=== PATIENT | female | born 1955 | race African-American/Black ===

== ENCOUNTER 2018-04-20 09:47 | Emergency (ER) | payer OTHER ==
[~2018-04-20] VITALS: Ht 167.6 cm; Wt 77.0 kg
[2018-04-20] MEDS ORDERED: DIPHENHYDRAMINE 50MG/ML VIAL IV ONE (10:15)
[2018-04-20] MEDS ORDERED: METOCLOPRAMIDE HCL 10MG/2ML VIAL IV ONE (10:15)
[2018-04-20] MEDS ORDERED: ASPIRIN 81MG TABLET PO NR (11:15)
[2018-04-20 11:46] LABS: BASOPHILS % 0.7 % (0.0-2.0); HEMATOCRIT. 37.8 % (36.0-48.0); HEMOGLOBIN. 12.3 g/dL (12.0-16.0); LYMPHOCYTES % 33.1 % (20.0-50.0); MEAN CORPUSCULAR HEMOGLOBIN 29.1 pg (28.0-32.0); MEAN CORPUSCULAR VOLUME 89.8 fL (81.0-99.0); MEAN PLATELET VOLUME 7.3 fl (7.4-10.4); MONOCYTES % 8.1 % (2.0-8.0); NEUTROPHILS % 55.1 % (40.0-76.0); PLATELET 366 x1000/uL (130-400); RED BLOOD CELL COUNT 4.21 mill/uL (4.2-5.4)
[2018-04-20 11:50] LABS: CHLORIDE 109 mEq/L (98-107)
[2018-04-20 11:51] LABS: INR 1.1; PROTHROMBIN TIME 10.7 sec (9.1-11.1)
[2018-04-20] MEDS ORDERED: ONDANSETRON HCL 4MG/2ML INJ IV ONE (12:30)
[2018-04-20 13:30] VITALS: BP 118/68
== END 2018-04-20 13:50 | disposition short-term general hospital (02) ==
LOC: ER 09:55 → CANBEDREQ 20:24
DX: R07.89 Other chest pain (principal); I11.9 Hypertensive heart disease without heart failure; I25.10 Atherosclerotic heart disease of native coronary artery without angina pectoris; Z79.01 Long term (current) use of anticoagulants; Z98.61 Coronary angioplasty status; Z88.6 Allergy status to analgesic agent
CPT/HCPCS: 36415; 71045; 80053; 83880; 84484; 85025; 85610; 93005; 96374; 96375; 99285; J1200; J2405; J2765

== ENCOUNTER 2018-07-29 23:41 | Emergency (ER) | payer OTHER ==
[~2018-07-29] VITALS: Ht 165.1 cm; Wt 69.0 kg
[2018-07-30] MEDS ORDERED: KETOROLAC 60MG/2ML VIAL IM ONE (00:15)
[2018-07-30 01:17] LABS: HEMATOCRIT 39.7 % (36.0-48.0); HEMOGLOBIN 12.8 g/dL (12.0-16.0); MEAN CORPUSCULAR HEMOGLOBIN 28.8 pg (28.0-32.0); MEAN CORPUSCULAR VOLUME 89.1 fL (81.0-99.0); PLATELET 327 x1000/uL (130-400); RED BLOOD CELL COUNT 4.45 mill/uL (4.2-5.4); RED CELL DISTRIBUTION WIDTH 15.5 % (11.6-14.6)
[2018-07-30 01:24] LABS: CHLORIDE 109 mEq/L (98-107)
[2018-07-30] MEDS ORDERED: IOHEXOL-350 100 ML BOTTLE ONE (03:24)
[2018-07-30 03:25] VITALS: BP 161/94
== END 2018-07-30 03:25 | disposition home or self-care (01) ==
LOC: ER 23:41
DX: R07.89 Other chest pain (principal); I10 Essential (primary) hypertension; I25.2 Old myocardial infarction; Y08.89XA Assault by other specified means, initial encounter; Y93.89 Activity, other specified; Y92.89 Other specified places as the place of occurrence of the external cause; Y99.8 Other external cause status; Z98.890 Other specified postprocedural states; Z88.8 Allergy status to other drugs, medicaments and biological substances; Z88.1 Allergy status to other antibiotic agents; Z88.6 Allergy status to analgesic agent; Z88.5 Allergy status to narcotic agent
CPT/HCPCS: 36415; 71045; 71275; 74174; 80053; 85027; 86850; 86900; 86901; 93005; 96372; 99284; J1885; Q9967

== ENCOUNTER 2018-12-25 09:55 | Emergency (ER) | payer OTHER ==
[~2018-12-25] VITALS: Ht 167.6 cm; Wt 72.0 kg
[2018-12-25] MEDS ORDERED: ONDANSETRON HCL 4MG/2ML INJ IV STA (10:21)
[2018-12-25] MEDS ORDERED: MORPHINE SULFATE 4 MG/ML CPJ (NOT FOR IM USE) IV STA (10:21)
[2018-12-25] MEDS ORDERED: NITROGLYCERIN OINT 1GM/INCH UDPKT TD ONE (10:30)
[2018-12-25 11:26] LABS: BASOPHILS % 0.4 % (0.0-2.0); EOSINOPHILS % 0.3 % (0.0-5.0); HEMATOCRIT. 41.3 % (36.0-48.0); HEMOGLOBIN. 13.6 g/dL (12.0-16.0); LYMPHOCYTES % 30.9 % (20.0-50.0); MEAN CORPUSCULAR VOLUME 90.8 fL (81.0-99.0); MEAN PLATELET VOLUME 7.8 fl (7.4-10.4); MONOCYTES % 5.6 % (2.0-8.0); NEUTROPHILS % 62.8 % (40.0-76.0); PLATELET 297 x1000/uL (130-400); RED BLOOD CELL COUNT 4.54 mill/uL (4.2-5.4); RED CELL DISTRIBUTION WIDTH 14.5 % (11.6-14.6)
[2018-12-25 11:35] LABS: CHLORIDE 110 mEq/L (98-107)
[2018-12-25] MEDS ORDERED: MORPHINE SULFATE 4 MG/ML CPJ (NOT FOR IM USE) IV ONE (13:30)
[2018-12-25] MEDS ORDERED: ONDANSETRON HCL 4MG/2ML INJ IV ONE (13:30)
[2018-12-25 14:33] VITALS: BP 137/74
== END 2018-12-25 14:57 | disposition short-term general hospital (02) ==
LOC: ER 09:55 → CANBEDREQ 15:41
DX: R07.89 Other chest pain (principal); I47.1 Supraventricular tachycardia; I11.9 Hypertensive heart disease without heart failure; I25.2 Old myocardial infarction; Z98.61 Coronary angioplasty status; Z88.8 Allergy status to other drugs, medicaments and biological substances; Z88.6 Allergy status to analgesic agent
CPT/HCPCS: 36415; 71045; 80053; 83880; 84484; 85025; 93005; 96361; 96374; 96375; 99285; J2270; J2405

== ENCOUNTER 2019-01-05 02:01 | Emergency (ER) | payer OTHER ==
[~2019-01-05] VITALS: Ht 160 cm; Wt 70.5 kg
[2019-01-05 06:51] LABS: BASOPHILS % 0.3 % (0.0-2.0); EOSINOPHILS % 0.9 % (0.0-5.0); HEMATOCRIT. 37.8 % (36.0-48.0); HEMOGLOBIN. 12.3 g/dL (12.0-16.0); LYMPHOCYTES % 40.7 % (20.0-50.0); MEAN CORPUSCULAR HEMOGLOBIN 29.9 pg (28.0-32.0); MEAN CORPUSCULAR VOLUME 91.9 fL (81.0-99.0); MEAN PLATELET VOLUME 7.7 fl (7.4-10.4); MONOCYTES % 7.1 % (2.0-8.0); PLATELET 253 x1000/uL (130-400); RED BLOOD CELL COUNT 4.12 mill/uL (4.2-5.4); RED CELL DISTRIBUTION WIDTH 13.8 % (11.6-14.6)
[2019-01-05 06:59] LABS: CHLORIDE 110 mEq/L (98-107)
[2019-01-05] MEDS ORDERED: OXYCODONE HCL/ACETAMINOPHEN 5/325MG TABLET PO ONE (07:00)
[2019-01-05 07:04] LABS: ETHANOL BLOOD < 10 mg/dL
[2019-01-05 08:49] VITALS: BP 105/62
== END 2019-01-05 11:53 | disposition short-term general hospital (02) ==
LOC: ER 02:01
DX: R07.89 Other chest pain (principal); R00.2 Palpitations; I10 Essential (primary) hypertension; I47.1 Supraventricular tachycardia; F17.200 Nicotine dependence, unspecified, uncomplicated; I25.2 Old myocardial infarction; Z98.890 Other specified postprocedural states; Z88.8 Allergy status to other drugs, medicaments and biological substances; Z88.5 Allergy status to narcotic agent; Z88.1 Allergy status to other antibiotic agents
CPT/HCPCS: 36415; 71045; 80320; 83880; 84484; 93005; 99285; G0480

== ENCOUNTER 2019-01-23 09:07 | Inpatient (IN) | payer OTHER ==
[~2019-01-23] VITALS: Ht 160 cm; Wt 70.3 kg
[2019-01-23] MEDS ORDERED: MORPHINE SULFATE 4 MG/ML CPJ (NOT FOR IM USE) IV STA (09:26)
[2019-01-23 09:54] LABS: BASOPHILS % 0.5 % (0.0-2.0); EOSINOPHILS % 0.3 % (0.0-5.0); HEMATOCRIT. 44.4 % (36.0-48.0); HEMOGLOBIN. 14.9 g/dL (12.0-16.0); LYMPHOCYTES % 21.6 % (20.0-50.0); MEAN CORPUSCULAR HEMOGLOBIN 30.5 pg (28.0-32.0); MEAN CORPUSCULAR VOLUME 90.9 fL (81.0-99.0); MEAN PLATELET VOLUME 7.6 fl (7.4-10.4); MONOCYTES % 6.5 % (2.0-8.0); NEUTROPHILS % 71.1 % (40.0-76.0); PLATELET 325 x1000/uL (130-400); RED BLOOD CELL COUNT 4.89 mill/uL (4.2-5.4); RED CELL DISTRIBUTION WIDTH 13.5 % (11.6-14.6)
[2019-01-23 10:01] LABS: CHLORIDE 111 mEq/L (98-107)
[2019-01-23] MEDS ORDERED: MORPHINE SULFATE 4 MG/ML CPJ (NOT FOR IM USE) IV ONE (11:00)
[2019-01-23 12:30] VITALS: BP 135/96
[2019-01-23 15:38] VITALS: BP 135/96
[2019-01-23] MEDS ORDERED: DOCUSATE SODIUM 100MG CAPSULE PO PRN (15:45)
[2019-01-23] MEDS ORDERED: HYDROCODONE/ACETAMINOPHEN 5/325MG TABLET PO PRN (15:45)
[2019-01-23] MEDS ORDERED: CLONIDINE 0.1MG TABLET PO PRN (15:45)
[2019-01-23] MEDS ORDERED: MAGNESIUM/ALUMINUM HYDROXIDE/SIMETHICONE 30ML UDC PO PRN (15:45)
[2019-01-23] MEDS ORDERED: ACETAMINOPHEN 325MG TABLET PO PRN (15:45)
[2019-01-23] MEDS ORDERED: IPRATROPIUM/ALBUTEROL 0.5-3(2.5)MG/3ML NEB NEB PRN (15:45)
[2019-01-23 16:00] VITALS: BP 108/66
[2019-01-23] MEDS: ASPIRIN 81MG EC TABLET PO SCH (17:07)
[2019-01-23] MEDS: METOPROLOL TARTRATE 25MG TABLET PO SCH ×2 (17:08→21:36)
[2019-01-23] MEDS: CLOPIDOGREL 75MG TABLET PO SCH (17:08)
[2019-01-23] MEDS ORDERED: ALPR0.5T MT (17:20)
[2019-01-23] MEDS ORDERED: CLOP75TA4 PO (17:20)
[2019-01-23] MEDS ORDERED: HYDR-3280 MT (17:20)
[2019-01-23] MEDS ORDERED: TIZA2CAP MT (17:20)
[2019-01-23] MEDS ORDERED: ASPI-1393 PO (17:20)
[2019-01-23] MEDS ORDERED: LAMC5 MT (17:20)
[2019-01-23] MEDS ORDERED: ONDA8TAB6 PO (17:20)
[2019-01-23] MEDS ORDERED: METO100T9 MT (17:20)
[2019-01-23] MEDS ORDERED: FAMO40TA70 PO (17:20)
[2019-01-23] MEDS ORDERED: ATOR10TA MT (17:20)
[2019-01-23] MEDS ORDERED: HYDR12.54 PO (17:20)
[2019-01-23] MEDS ORDERED: MORPHINE SULFATE 2 MG/ML CPJ (NOT FOR IM USE) IV PRN (17:30)
[2019-01-23] MEDS: MORPHINE SULFATE 2 MG/ML CPJ (NOT FOR IM USE) IV PRN (17:44)
[2019-01-23] MEDS: ENOXAPARIN 40MG/0.4ML SYR SUBCUT SCH (18:57)
[2019-01-23 20:00] VITALS: BP 98/68
[2019-01-23] MEDS: HYDROCODONE/ACETAMINOPHEN 10/325MG TABLET PO PRN (21:36)
[2019-01-23] MEDS: TIZANIDINE HCL 2MG TABLET PO SCH (21:37)
[2019-01-24] VITALS (7 sets, daily range): BP systolic 104–180; BP diastolic 63–86
[2019-01-24] MEDS: MORPHINE SULFATE 2 MG/ML CPJ (NOT FOR IM USE) IV PRN ×3 (01:40→15:19)
[2019-01-24] MEDS: ONDANSETRON HCL 4MG/2ML INJ IV PRN ×2 (04:49→09:15)
[2019-01-24] MEDS: HYDROCODONE/ACETAMINOPHEN 10/325MG TABLET PO PRN ×3 (04:56→20:40)
[2019-01-24 06:59] LABS: BASOPHILS % 0.4 % (0.0-2.0); EOSINOPHILS % 1.2 % (0.0-5.0); HEMATOCRIT. 41.4 % (36.0-48.0); HEMOGLOBIN. 13.4 g/dL (12.0-16.0); LYMPHOCYTES % 37.4 % (20.0-50.0); MEAN CORPUSCULAR HEMOGLOBIN 29.6 pg (28.0-32.0); MEAN CORPUSCULAR VOLUME 91.3 fL (81.0-99.0); MEAN PLATELET VOLUME 7.8 fl (7.4-10.4); MONOCYTES % 8.2 % (2.0-8.0); NEUTROPHILS % 52.8 % (40.0-76.0); PLATELET 318 x1000/uL (130-400); RED BLOOD CELL COUNT 4.54 mill/uL (4.2-5.4); RED CELL DISTRIBUTION WIDTH 13.6 % (11.6-14.6)
[2019-01-24 07:13] LABS: CHLORIDE 109 mEq/L (98-107)
[2019-01-24 07:23] LABS: PHOSPHORUS 3.4 mg/dL (2.5-4.9)
[2019-01-24 07:24] LABS: LDL CHOLESTEROL 117 mg/dL (5-100)
[2019-01-24 07:27] LABS: HDL CHOLESTEROL 42 mg/dL (40-59)
[2019-01-24] MEDS ORDERED: LAMOTRIGINE 25MG TABLET PO SCH (09:00)
[2019-01-24] MEDS: ASPIRIN 81MG EC TABLET PO SCH (11:16)
[2019-01-24] MEDS: METOPROLOL TARTRATE 25MG TABLET PO SCH ×2 (11:16→20:39)
[2019-01-24] MEDS: CLOPIDOGREL 75MG TABLET PO SCH (11:16)
[2019-01-24] MEDS: ENOXAPARIN 40MG/0.4ML SYR SUBCUT SCH (17:20)
[2019-01-24] MEDS: TIZANIDINE HCL 2MG TABLET PO SCH (20:39)
== END 2019-01-24 22:00 | disposition short-term general hospital (02) | DRG 310 ==
LOC: ER 09:07 → 6WST 11:18 → ENRESERV 12:56 → 6WST 18:11
PROVIDERS: ADMIT Family Medicine Adult Medicine; ATTEND Family Medicine Adult Medicine
DX: I47.1 Supraventricular tachycardia (principal); F41.9 Anxiety disorder, unspecified; G89.29 Other chronic pain; I10 Essential (primary) hypertension; I25.10 Atherosclerotic heart disease of native coronary artery without angina pectoris; M54.9 Dorsalgia, unspecified; I48.91 Unspecified atrial fibrillation; K21.9 Gastro-esophageal reflux disease without esophagitis; Z82.49 Family history of ischemic heart disease and other diseases of the circulatory system; Z90.711 Acquired absence of uterus with remaining cervical stump; Z95.5 Presence of coronary angioplasty implant and graft; Z88.8 Allergy status to other drugs, medicaments and biological substances
CPT/HCPCS: 36415; 71045; 80048; 80061; 83735; 83880; 84100; 84443; 84484; 93005; 93306; 93970; 96374; 96376; 99285; J1650; J2270; J2405

== ENCOUNTER 2019-01-25 23:50 | Emergency (ER) | payer OTHER ==
[~2019-01-25] VITALS: Ht 170.2 cm; Wt 72.0 kg
[~2019-01-25 23:50] MED LIST: ALPR0.5T MT; ASPI-1393 PO; ATOR10TA MT; CLOP75TA4 PO; FAMO40TA70 PO; HYDR-3280 MT; HYDR12.54 PO; LAMC5 MT; METO100T9 MT; ONDA8TAB6 PO; TIZA2CAP MT
[2019-01-26 00:36] LABS: BASOPHILS % 0.4 % (0.0-2.0); EOSINOPHILS % 0.7 % (0.0-5.0); HEMATOCRIT. 40.3 % (36.0-48.0); HEMOGLOBIN. 13.4 g/dL (12.0-16.0); LYMPHOCYTES % 36.5 % (20.0-50.0); MEAN CORPUSCULAR VOLUME 90.4 fL (81.0-99.0); MEAN PLATELET VOLUME 7.8 fl (7.4-10.4); MONOCYTES % 8.1 % (2.0-8.0); NEUTROPHILS % 54.3 % (40.0-76.0); PLATELET 286 x1000/uL (130-400); RED BLOOD CELL COUNT 4.46 mill/uL (4.2-5.4); RED CELL DISTRIBUTION WIDTH 13.5 % (11.6-14.6)
[2019-01-26 00:40] LABS: CHLORIDE 106 mEq/L (98-107)
[2019-01-26 00:48] LABS: ETHANOL BLOOD < 10 mg/dL
[2019-01-26 00:52] LABS: T4 FREE 1.51 ng/dL (0.76-1.46)
[2019-01-26] MEDS ORDERED: POTASSIUM CHLORIDE 20MEQ TABLET SR PO SCH (01:45)
[2019-01-26 03:02] VITALS: BP 125/84
== END 2019-01-26 03:33 | disposition short-term general hospital (02) ==
LOC: ER 23:50
DX: I47.1 Supraventricular tachycardia (principal); I48.91 Unspecified atrial fibrillation; I25.2 Old myocardial infarction; Z88.8 Allergy status to other drugs, medicaments and biological substances; Z79.899 Other long term (current) drug therapy; Z79.82 Long term (current) use of aspirin
CPT/HCPCS: 36415; 71045; 80320; 83880; 84439; 84443; 84484; 93005; 99285; G0480

== ENCOUNTER 2019-03-19 16:20 | Emergency (ER) | payer OTHER ==
[~2019-03-19] VITALS: Ht 165.1 cm; Wt 75.0 kg
[2019-03-19] MEDS ORDERED: ONDANSETRON HCL 4MG/2ML INJ IV STA (18:44)
[2019-03-19] MEDS ORDERED: MORPHINE SULFATE 4 MG/ML CPJ (NOT FOR IM USE) IV STA (18:44)
[2019-03-19 19:25] LABS: BASOPHILS % 0.3 % (0.0-2.0); EOSINOPHILS % 1.3 % (0.0-5.0); HEMATOCRIT. 37.8 % (36.0-48.0); HEMOGLOBIN. 12.5 g/dL (12.0-16.0); LYMPHOCYTES % 36.3 % (20.0-50.0); MEAN CORPUSCULAR HEMOGLOBIN 29.6 pg (28.0-32.0); MEAN CORPUSCULAR VOLUME 89.6 fL (81.0-99.0); MEAN PLATELET VOLUME 8.2 fl (7.4-10.4); MONOCYTES % 8.1 % (2.0-8.0); PLATELET 246 x1000/uL (130-400); RED BLOOD CELL COUNT 4.21 mill/uL (4.2-5.4); RED CELL DISTRIBUTION WIDTH 14.5 % (11.6-14.6)
[2019-03-19 19:29] LABS: CHLORIDE 110 mEq/L (98-107)
[2019-03-19 19:31] LABS: PARTIAL THROMBOPLASTIN TIME 27.3 sec (23.4-31.0); PROTHROMBIN TIME 10.2 sec (9.6-11.0)
[2019-03-19 21:24] VITALS: BP 145/76
== END 2019-03-19 21:30 | disposition short-term general hospital (02) ==
LOC: ER 16:20 → CANBEDREQ 22:41
DX: R07.89 Other chest pain (principal); R00.2 Palpitations; I48.91 Unspecified atrial fibrillation; I10 Essential (primary) hypertension; I25.2 Old myocardial infarction; Z98.61 Coronary angioplasty status; Z79.01 Long term (current) use of anticoagulants; Z98.890 Other specified postprocedural states; Z79.82 Long term (current) use of aspirin; Z88.6 Allergy status to analgesic agent; Z88.8 Allergy status to other drugs, medicaments and biological substances
CPT/HCPCS: 36415; 71045; 80053; 83690; 83880; 84443; 84484; 85025; 85610; 85730; 93005; 96374; 96375; 99285; J2270; J2405

== ENCOUNTER 2019-10-25 11:30 | Emergency (ER) | payer OTHER ==
[~2019-10-25] VITALS: Ht 160 cm; Wt 62.0 kg
[~2019-10-25 11:30] MED LIST changes: -ASPI-1393 PO; +ASPI-1497 PO
[2019-10-25] MEDS ORDERED: ONDANSETRON HCL 4MG/2ML INJ IV STA (11:50)
[2019-10-25] MEDS ORDERED: MORPHINE SULFATE 4 MG/ML CPJ (NOT FOR IM USE) IV STA (11:50)
[2019-10-25] MEDS ORDERED: DILTIAZEM HCL 5MG/ML 5ML VIAL IV ONE (12:00)
[2019-10-25 12:08] LABS: BASOPHILS % 0.5 % (0.0-2.0); EOSINOPHILS % 0.3 % (0.0-5.0); HEMATOCRIT. 41.5 % (36.0-48.0); HEMOGLOBIN. 13.8 g/dL (12.0-16.0); LYMPHOCYTES % 27.6 % (20.0-50.0); MEAN CORPUSCULAR HEMOGLOBIN 30.1 pg (28.0-32.0); MEAN CORPUSCULAR VOLUME 90.4 fL (81.0-99.0); MEAN PLATELET VOLUME 7.6 fl (7.4-10.4); MONOCYTES % 7.7 % (2.0-8.0); NEUTROPHILS % 63.9 % (40.0-76.0); PLATELET 240 x1000/uL (130-400); RED BLOOD CELL COUNT 4.59 mill/uL (4.2-5.4); RED CELL DISTRIBUTION WIDTH 14.9 % (11.6-14.6)
[2019-10-25 12:12] LABS: CHLORIDE 110 mEq/L (98-107)
[2019-10-25] MEDS ORDERED: ACETAMINOPHEN WITH CODEINE 300/30MG TABLET PO ONE (14:00)
[2019-10-25] MEDS ORDERED: DILTIAZEM HCL 120MG CAPSULE CD 24HR PO ONE (14:00)
[2019-10-25 14:32] VITALS: BP 115/79
== END 2019-10-25 15:22 | disposition short-term general hospital (02) ==
LOC: ER 11:30 → CANBEDREQ 16:20
DX: R07.89 Other chest pain (principal); R00.0 Tachycardia, unspecified; I25.2 Old myocardial infarction; I10 Essential (primary) hypertension; I48.91 Unspecified atrial fibrillation; Z79.01 Long term (current) use of anticoagulants; Z98.62 Peripheral vascular angioplasty status; Z88.6 Allergy status to analgesic agent; Z88.8 Allergy status to other drugs, medicaments and biological substances
CPT/HCPCS: 36415; 71045; 80053; 83880; 84484; 85025; 93005; 96374; 96375; 99285; J2270; J2405; J3490

== ENCOUNTER 2021-05-21 11:47 | Inpatient (IN) | payer OTHER, MEDICAID ==
[~2021-05-21] VITALS: Ht 160 cm; Wt 68.9 kg
[~2021-05-21 11:47] MED LIST changes: +CLOP-31 PO; -CLOP75TA4 PO; -HYDR-3280 MT; +HYDR-4350 MT
[2021-05-21 12:31] LABS: BASOPHILS % 0.7 % (0.0-2.0); EOSINOPHILS % 1.4 % (0.0-5.0); HEMATOCRIT. 42.5 % (36.0-48.0); HEMOGLOBIN. 14.2 g/dL (12.0-16.0); LYMPHOCYTES % 27.8 % (20.0-50.0); MEAN CORPUSCULAR HEMOGLOBIN 29.1 pg (28.0-32.0); MEAN CORPUSCULAR VOLUME 86.8 fL (81.0-99.0); MONOCYTES % 6.3 % (2.0-8.0); NEUTROPHILS % 63.8 % (40.0-76.0); RED CELL DISTRIBUTION WIDTH 14.6 % (11.6-14.6)
[2021-05-21 12:37] LABS: CHLORIDE 109 mEq/L (98-107)
[2021-05-21] MEDS ORDERED: METOPROLOL TARTRATE 100MG TABLET PO SCH (13:00)
[2021-05-21] MEDS ORDERED: POTASSIUM CHLORIDE 20MEQ TABLET SR PO NR (13:00)
[2021-05-21 13:01] LABS: PLATELET 224 x1000/uL (130-400)
[2021-05-21 13:09] LABS: CLARITY URINE CLEAR (CLEAR); COLOR URINE YELLOW (YELLOW); KETONES URINE NEGATIVE (NEGATIVE); LEUKOCYTE ESTERASE URINE NEGATIVE (NEGATIVE); NITRITE URINE NEGATIVE (NEGATIVE); OCCULT BLOOD URINE NEGATIVE (NEGATIVE); PROTEIN URINE NEGATIVE (NEGATIVE); SPECIFIC GRAVITY URINE 1.012 (1.005-1.030); UROBILINOGEN URINE 0.2 E.U./dL (0.2-1.0)
[2021-05-21] MEDS ORDERED: LORAZEPAM 2MG/ML CPJ IV ONE (13:45)
[2021-05-22 02:30] VITALS: BP 141/95
[2021-05-22] MEDS: LORAZEPAM 1MG TABLET PO PRN ×2 (03:55→11:18)
[2021-05-22 06:55] LABS: BASOPHILS % 0.5 % (0.0-2.0); EOSINOPHILS % 2.1 % (0.0-5.0); HEMATOCRIT. 38.8 % (36.0-48.0); HEMOGLOBIN. 12.9 g/dL (12.0-16.0); LYMPHOCYTES % 40.4 % (20.0-50.0); MEAN CORPUSCULAR HEMOGLOBIN 29.2 pg (28.0-32.0); MEAN CORPUSCULAR VOLUME 87.3 fL (81.0-99.0); MEAN PLATELET VOLUME 7.9 fl (7.4-10.4); MONOCYTES % 8.2 % (2.0-8.0); NEUTROPHILS % 48.8 % (40.0-76.0); PLATELET 277 x1000/uL (130-400); RED BLOOD CELL COUNT 4.44 mill/uL (4.2-5.4); RED CELL DISTRIBUTION WIDTH 14.6 % (11.6-14.6)
[2021-05-22 07:11] LABS: CREATINE KINASE 113 IU/L (26-192)
[2021-05-22 07:12] LABS: CREATINE KINASE MB FRACTION < 1.0 ng/mL (0.5-3.6)
[2021-05-22 07:20] LABS: CHLORIDE 110 mEq/L (98-107)
[2021-05-22 08:00] VITALS: BP 154/88
[2021-05-22] MEDS ORDERED: ASPIRIN 81MG TABLET PO SCH (09:00)
[2021-05-22] MEDS ORDERED: METOPROLOL TARTRATE 50MG TABLET PO SCH (09:00)
[2021-05-22] MEDS ORDERED: ENOXAPARIN 40MG/0.4ML SYR SUBCUT SCH (09:00)
[2021-05-22 12:00] VITALS: BP 142/82
[2021-05-22] MEDS ORDERED: METO100T16 MT (14:12)
[2021-05-22] MEDS ORDERED: ASPI-1497 PO (14:12)
== END 2021-05-22 14:20 | disposition left against medical advice (07) | DRG 291 ==
LOC: ER 12:26 → MICUSO 17:07 → 8WST 05-22 01:27
PROVIDERS: ADMIT Internal Medicine; ATTEND Internal Medicine
DX: I11.0 Hypertensive heart disease with heart failure (principal); I50.43 Acute on chronic combined systolic (congestive) and diastolic (congestive) heart failure; I47.1 Supraventricular tachycardia; I42.9 Cardiomyopathy, unspecified; E87.6 Hypokalemia; I25.10 Atherosclerotic heart disease of native coronary artery without angina pectoris; E78.00 Pure hypercholesterolemia, unspecified; E78.5 Hyperlipidemia, unspecified; F41.9 Anxiety disorder, unspecified; I25.119 Atherosclerotic heart disease of native coronary artery with unspecified angina pectoris; I48.91 Unspecified atrial fibrillation; Z79.02 Long term (current) use of antithrombotics/antiplatelets; Z79.899 Other long term (current) drug therapy; Z95.5 Presence of coronary angioplasty implant and graft; I25.2 Old myocardial infarction; Z80.3 Family history of malignant neoplasm of breast; Z82.49 Family history of ischemic heart disease and other diseases of the circulatory system; Z87.891 Personal history of nicotine dependence; Z90.711 Acquired absence of uterus with remaining cervical stump; Z88.8 Allergy status to other drugs, medicaments and biological substances
CPT/HCPCS: 36415; 71045; 80048; 80053; 81003; 82550; 82553; 83735; 83880; 84443; 84484; 85025; 87426; 93005; 99291; J2060